=== PATIENT | male | born 1995 | race Caucasian/White ===

== ENCOUNTER 2021-04-02 12:49 | Emergency (ER) | payer MEDICARE, MEDICAID, SELFPAY ==
[2021-04-02 13:17] VITALS: BP 104/75; PULSE 70; RESP 20; TEMP 36.5; O2SAT 100
--- NOTE | 2021-04-02 13:22 | ED.SKABFB ---
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 Related Data Allergies Allergy/AdvReac Type Severity Reaction Status Date / Time No Known Allergies Allergy Unverified 02/23/18 11:00 Review of Systems Review of Systems: All systems reviewed & are unremarkable except as noted in HPI and below Constitutional: Constitutional: Reports no additional constitutional complaints, Denies chills and Denies fever(s) Eyes: Eyes: Reports no additional eye complaints ENT: Reports system reviewed and no additional complaints, except as documented Cardiovascular: Cardiovascular: Reports no additional cardiovascular complaints Respiratory: Respiratory: Reports no additional respiratory complaints Gastrointestinal: Gastrointestinal: Reports no additional gastrointestinal complaints Genitourinary: Genitourinary: Reports no additional male genitourinary complaints Musculoskeletal: Musculoskeletal: Reports no additional musculoskeletal complaints Integumentary/Breasts: Skin/Breast: Reports as per HPI Comments: Right groin area, red raised area, Neurologic: Reports system reviewed and no additional complaints, except as documented Psychiatric: Psychiatric: Reports no additional psychiatric complaints Allergic/Immunologic: Allergic/Immunologic: Reports no additional allergic/immunologic complaints [facility] Past Medical History Medical History (Updated 04/02/21 @ 20:12 by Chaya Lovett) Mental and behavioral problem Social History Social History Smoking status: Never smoker Alcohol intake: never Comments At the time of my signature, I reviewed and agree with the nursing past medical, surgical, social, and family history. There is no relevant family history pertinent to the patient complaint. Exam Const: General: no acute distress and alert Nutritional Appearance: well nourished Orientation/consciousness: patient oriented x3 Limitations: no limitations and behavioral limitations (MR lives in a skilled nursing) HENMT: Head: normal to inspection Eyes: Conjunctivae: conjunctivae normal Pupils: Equal, round and reactive pupils present Neck: Neck: normal visual inspection Chest: Chest palpation & inspection: normal inspection of the chest Resp: Effort & Inspection: normal respiratory effort Auscultation: clear to auscultation bilaterally Cardio: Rate: regular rate Rhythm: regular rhythm GI: GI Palp: Yes Soft to palpation and No Tenderness to palpation present (GI) Skin: General skin exam: normal color Other: Small scabbed over area noted to the left groin area. Caregiver states it was a pustule last night. Now red proximately 1-1/2 cm in diameter Neuro: General: patient oriented x3, moves all extremities and no meningeal signs Extrem: General: normal to inspection Psych: Appearance: grossly normal and well kempt Mental Status: mental status grossly normal Affect: normal affect Attitude: cooperative Thought content: Yes Normal thought content present Course Course Emergency Course: Discharge instructions reviewed with patient, as well as provided in writing per nursing staff. The instructions also include specific and strict return/GO TO THE ER as well as f/u information. All questions have been answered, and the patient deny any further questions with discharge and discharge plan. Vital Signs Vital signs: Vital Signs Temperature 97.7 F 04/02/21 13:17 Pulse Rate 70 04/02/21 13:17 Respiratory Rate 20 04/02/21 13:17 Blood Pressure 104/75 04/02/21 13:17
== END 2021-04-02 13:50 | disposition home or self-care (01) ==
PROVIDERS: Emergency Provider Nurse Practitioner
DX: L03.314 Cellulitis of groin (principal); F84.0 Autistic disorder
CPT/HCPCS: 99213; G0463

== ENCOUNTER 2021-07-19 14:17 | Emergency (ER) | payer MEDICARE, MEDICAID, SELFPAY ==
[2021-07-19 14:27] VITALS: BP 102/77; PULSE 80; RESP 12; TEMP 36.7; O2SAT 100
[2021-07-19 14:33] VITALS: BP 102/77; PULSE 80; RESP 12; TEMP 36.7; O2SAT 100
--- NOTE | 2021-07-19 14:47 | ED.GENADULT ---
HPI - General Adult General Chief complaint: Unspecified Stated complaint: rib pain Time Seen by Provider: 07/19/21 14:45 Source: other ([facility] staff) Mode of arrival: ambulatory Limitations: other (nonverbal) History of Present Illness HPI narrative: [facility] staff member states patient was choking at lunch today on either a sandwich or Cheetos. She heard the patient choking and administered the Heimlich maneuver/ 3 abdominal thrusts to the patient, until she felt the food dislodged. Since that time, patient has been acting normally, but he is nonverbal. The nurse at the facility wanted patient checked out, and this is why they present to [facility] today. MD complaint: Post Heimlich maneuver Related Data Home Medications Medication Instructions Recorded Confirmed divalproex PO 07/19/21 olanzapine mg 07/19/21 propranolol 07/19/21 risperidone mg 07/19/21 risperidone mg 07/19/21 Allergies Allergy/AdvReac Type Severity Reaction Status Date / Time No Known Allergies Allergy Unverified 02/23/18 11:00 Review of Systems Review of Systems: Obtained by [facility] staff member CONSTITUTIONAL: Denies fever, chills, or sweats. EYES: Denies redness, or discharge. ENT: Denies rhinorrhea, congestion. CARDIOVASCULAR: Denies edema. RESPIRATORY: Denies cough or dyspnea. GASTROINTESTINAL: Denies vomiting, or diarrhea. + Choking episode SKIN: Denies rash, itching, or wounds. [facility] Past Medical History Medical History (Updated 07/19/21 @ 15:00 by Noelle Dorsey, [facility], ) ADHD Autism alcohol syndrome (dysmorphic) Intellectual delay Mental and behavioral problem Thrombocytopenia Social History Social History Smoking status: Never smoker Alcohol intake: never Comments At time of signature, I have reviewed and agree with nursing past medical, surgical, social and family history unless otherwise noted. Please see nursing chart for further information. There is no relevant family history pertinent to the presenting complaint Exam Narrative: GENERAL: Well-appearing, well-nourished, and in no acute distress. HEAD: Normocephalic, atraumatic. EYES: EOMI. No redness or drainage. Conjunctivae normal. ENT: Mucous membranes pink and moist. NECK: Normal AROM. CHEST: No respiratory distress. Clear to auscultation. Chest is nontender to palpation throughout all ribs. No crepitus or deformity noted. No ecchymosis or edema noted to the chest, ribs, or back. Patient does not withdrawal to palpation of the ribs. HEART: Regular rate and rhythm. No murmur appreciated. Normal peripheral pulses. ABDOMEN: Soft, nontender, nondistended, normal active bowel sounds. Patient does not withdraw to palpation of the abdomen. MUSCULOSKELETAL: No bony tenderness. EXTREMITIES: Normal range of motion. No edema. SKIN: Warm, dry, no rash. Capillary refill normal. Normal skin turgor. NEURO: No focal deficits. Alert and oriented x3. Gait steady. Patient is nonverbal but is redirectable. Course Course Emergency Course: Patient has a normal exam. I do not feel it needed to attempt an x-ray tonight. Vital Signs Vital signs: Vital Signs Temperature 98.1 F 07/19/21 14:27 Pulse Rate 80 07/19/21 14:27 Respiratory Rate 12 07/19/21 14:27 Blood Pressure 102/77 07/19/21 14:27 Pulse Oximetry 100 07/19/21 14:27 Temperature 98.1 F 07/19/21 14:33 Pulse Rate 80 07/19/21 14:33 Respiratory Rate 12 07/19/21 14:33 Blood Pressure 102/77 07/19/21 14:33 Pulse Oximetry 100 07/19/21 14:33 Reviewed Medical Decision Making Differential Diagnosis Differential Diagnosis: Rib contusion, rib fracture, normal exam Vital Signs Vital Signs: Vital Signs Temperature 98.1 F 07/19/21 14:27 Pulse Rate 80 07/19/21 14:27 Respiratory Rate 12 07/19/21 14:27 Blood Pressure 102/77 07/19/21 14:27 Pulse Oximetry 100 07/19/21 14:27 Temper
== END 2021-07-19 15:04 | disposition home or self-care (01) ==
PROVIDERS: Emergency Provider Nurse Practitioner
DX: Z71.1 Person with feared health complaint in whom no diagnosis is made (principal); F84.0 Autistic disorder; F90.9 Attention-deficit hyperactivity disorder, unspecified type
CPT/HCPCS: 99211; G0463

== ENCOUNTER 2022-06-24 17:20 | Emergency (ER) | payer MEDICARE, MEDICAID, SELFPAY ==
[2022-06-24 17:31] VITALS: PULSE 92; RESP 16; TEMP 36.9; O2SAT 98
--- NOTE | 2022-06-24 17:42 | ED.EAR ---
HPI - Ear Problem General Chief complaint: Ear Stated complaint: pointing to ears Time Seen by Provider: 06/24/22 17:42 Source: patient Mode of arrival: ambulatory Limitations: no limitations History of Present Illness HPI Narrative: 27-year-old male presents with caregiver stating that patient has been acting abnormal for 2-3 days. Reports that he normally is in bed 8:30 p.m. and has been staying up late. Has been grabbing at his ears. Patient is nonverbal and not able to communicate his pain. caregiver states that nurse at senior living would like urine, throat and ears checked. All systems reviewed and negative except as noted above. Related Data Home Medications Medication Instructions Recorded Confirmed divalproex 500 mg tablet,extended 500 mg PO DIRECTED 07/19/21 06/24/22 release 24 hr olanzapine 10 mg tablet 10 mg PO DAILY 07/19/21 06/24/22 propranolol 10 mg tablet 10 mg PO DAILY 07/19/21 06/24/22 risperidone 0.5 mg tablet 0.5 mg PO DAILY 07/19/21 06/24/22 risperidone 1 mg tablet 1 mg PO DAILY 07/19/21 06/24/22 famotidine 20 mg tablet 20 mg PO DAILY 06/24/22 06/24/22 guanfacine 1 mg tablet 1 mg PO DIRECTED 06/24/22 06/24/22 medroxyprogesterone 10 mg tablet 10 mg PO DIRECTED 06/24/22 06/24/22 wheat dextrin 3 gram/3.5 gram oral PO 06/24/22 powder (Best Fiber) Allergies Allergy/AdvReac Type Severity Reaction Status Date / Time No Known Allergies Allergy Verified 06/24/22 17:23 Review of Systems Review of Systems: CONSTITUTIONAL: Denies fever, chills, or sweats. EYES: Denies visual changes, redness, or discharge. ENT: Denies rhinorrhea, congestion, sore throat, or otalgia. CARDIOVASCULAR: Denies chest pain, palpitations, or edema. RESPIRATORY: Denies cough or dyspnea. GASTROINTESTINAL: Denies abdominal pain, nausea, vomiting, or diarrhea. GENITOURINARY: Denies dysuria or hematuria. SKIN: Denies rash or itching. MUSCULOSKELETAL: Denies back pain, joint pain, or myalgia. NEUROLOGIC: Denies headache, numbness, or weakness. PSYCHIATRIC: Denies anxiety or depression. caregiver reports Not acting himself. All other systems reviewed are negative, except as documented in HPI. [facility] Past Medical History Medical History (Updated 06/24/22 @ 18:20 by Cheri Payne NP) ADHD Autism alcohol syndrome (dysmorphic) Intellectual delay Mental and behavioral problem Thrombocytopenia Social History Social History Smoking status: Never smoker Alcohol intake: never Comments At time of signature, agree with nursing past medical, surgical, social and family history. There is no relevant family history pertinent to the presenting complaint. Exam Narrative: GENERAL: This is a well-nourished, well-developed patient, in no apparent distress. HEAD: normocephalic, atraumatic. EYES: PERRL. Sclera clear/white. Vision is grossly intact. EARS: External ears normal, auditory canals clear and without drainage, TMs normal without perforation. Hearing grossly intact. NOSE: External nose normal with no obvious nasal discharge, nares without redness, no rhinorrhea. THROAT: Mucous membranes moist, posterior pharynx clear. NECK: Neck supple, non-tender without lymphadenopathy, masses or thyromegaly. CARDIOVASCULAR: Regular rate and rhythm without murmurs, gallops, or rubs. RESPIRATORY: Clear to auscultation. Breath sounds equal bilaterally. No wheezes, rales, or rhonchi. SKIN: warm, Dry, intact with no suspicious lesions or rash, good texture and turgor. NEURO: awake EXTREMITIES: No joint tenderness, effusion, or edema noted. Course Course Level of Care: Express Care Visit Vital Signs Vital signs: Vital Signs Temperature 36.9 C 06/24/22 17:31 Pulse Rate 92 06/24/22 17:31 Respiratory Rate 16 06/24/22 17:31 Pulse Oximetry 98 06/24/22 17:31 Oxygen Delivery Room Air 06/24/22 17:31 Temperature 36.9 C 06/24/22 17
== END 2022-06-24 18:27 | disposition home or self-care (01) ==
PROVIDERS: Emergency Provider Nurse Practitioner Family
DX: R46.2 Strange and inexplicable behavior (principal); Z20.822 Contact with and (suspected) exposure to COVID-19
CPT/HCPCS: 81003; 87081; 87426; 87804; 87880; 99213; C9803; G0463

== ENCOUNTER 2023-01-01 08:06 | Emergency (ER) | payer MEDICARE, MEDICAID, SELFPAY ==
--- NOTE | 2023-01-01 08:08 | ED.URI ---
HPI - URI/Sore Throat General Chief Complaint: Eye Problems Stated Complaint: Eyes Irritation, Cough Time Seen by Provider: 01/01/23 08:07 Source: patient Mode of arrival: ambulatory Limitations: no limitations History of Present Illness HPI Narrative: Jostin is a 27-year-old male patient presenting to the clinic today with complaints of bilateral eye irritation, sore throat, and cough since last night. Patient is a developmentally disabled gentleman who lives in a half-way. Caregiver reports that staff noticed he had some drainage coming from bilateral eyes last night with mild swelling and irritation. Patient has a history of playing in his stool/eating his stool. Patient reporting sore throat. Denies any known fever or chills however temperature is 99? F in the clinic today. MD elicited complaint: sore throat, nasal congestion and other (Eye drainage) Related Data Home Medications Medication Instructions Recorded Confirmed divalproex 500 mg tablet,extended 500 mg PO DIRECTED 07/19/21 01/01/23 release 24 hr olanzapine 10 mg tablet 10 mg PO DAILY 07/19/21 01/01/23 propranolol 10 mg tablet 10 mg PO DAILY 07/19/21 01/01/23 risperidone 0.5 mg tablet 0.5 mg PO DAILY 07/19/21 01/01/23 risperidone 1 mg tablet 1 mg PO DAILY 07/19/21 01/01/23 famotidine 20 mg tablet 20 mg PO DAILY 06/24/22 01/01/23 guanfacine 1 mg tablet 1 mg PO DIRECTED 06/24/22 01/01/23 medroxyprogesterone 10 mg tablet 10 mg PO DIRECTED 06/24/22 01/01/23 wheat dextrin 3 gram/3.5 gram oral 3 g PO DAILY 06/24/22 01/01/23 powder (Best Fiber) Allergies Allergy/AdvReac Type Severity Reaction Status Date / Time No Known Allergies Allergy Verified 06/24/22 17:23 Review of Systems Review of Systems: Pertinent positives per HPI. Patient denies any fever, chills, rash, headache, visual changes, dizziness, shortness of breath, chest pain, palpitations, nausea, vomiting, diarrhea, constipation, abdominal pain, or any urinary issues. PMFSH Past Medical History Medical History ADHD Autism alcohol syndrome (dysmorphic) Intellectual delay Mental and behavioral problem Thrombocytopenia Social History Social History Smoking status: Never smoker Alcohol intake: never Comments At the time of my signature, I reviewed and agree with the nursing past medical, surgical, social, and family history. There is no relevant family history pertinent to the patient complaint. Exam Narrative: General: Well-developed, obese, in no apparent distress Head: Normocephalic, atraumatic Eyes: Pupils equally round and reactive to light bilaterally, EOM intact, sclera and conjunctive injected with yellow mucopurulent discharge right greater than left, lids mildly swelling Ears: TMs intact and clear, ear canals clear, no drainage, grossly hearing normal. Nose: Nares patent, clear discharge, no inflammation, no sinus tenderness. Mouth: Oral pharynx red without lesions or masses, good dentition, MMM. Neck: Supple, trachea midline, mild enlargement of anterior cervical nodes, no thyroid masses or goiter palpable. Cardio: Regular rate and rhythm, s1 and s2 normal, no murmur appreciated. Resp: Clear to auscultation bilaterally, no rhonchi, rales, wheezing or rubs Course Course Emergency Course: Portions of this record may have been created with voice recognition software. Level of Care: Express Care Visit Vital Signs Vital signs: Vital Signs Temperature 37.2 C 01/01/23 08:20 Pulse Rate 95 01/01/23 08:20 Respiratory Rate 14 01/01/23 08:20 Blood Pressure 105/77 01/01/23 08:20 Pulse Oximetry 99 01/01/23 08:20 Oxygen Delivery Room Air 01/01/23 08:20 Temperature 37.2 C 01/01/23 08:20 Pulse Rate 95 01/01/23 08:20 Respiratory Rate 14 01/01/23 08:20 Blood Pressure 105/77 01/01/23 08:20 Pu
[2023-01-01 08:20] VITALS: BP 105/77; PULSE 95; RESP 14; TEMP 37.2; O2SAT 99
== END 2023-01-01 08:43 | disposition home or self-care (01) ==
PROVIDERS: Emergency Provider Nurse Practitioner Family
DX: J06.9 Acute upper respiratory infection, unspecified (principal); H10.33 Unspecified acute conjunctivitis, bilateral; F84.0 Autistic disorder; F79 Unspecified intellectual disabilities; F90.9 Attention-deficit hyperactivity disorder, unspecified type
CPT/HCPCS: 87081; 87880; 99213; G0463

== ENCOUNTER 2025-01-30 17:08 | Emergency (ER) | payer MEDICARE, MEDICAID, SELFPAY ==
--- NOTE | ~2025-01-30 | XR_ITS ---
Clinical Indication: Cough, fever PA and lateral views of the chest: Comparison: None Findings: The lungs are clear, without evidence of focal consolidation or pleural effusion. Cardiome diastinal silhouette is within normal limits. Bones and soft tissues are unremarkable. Impression: Normal chest. Reviewed, dictated and finalized at location . Impression: Normal chest.
[2025-01-30 17:09] VITALS: BP 140/90; PULSE 87; RESP 16; TEMP 36.7; O2SAT 99
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
--- OUTSIDE RECORDS SUMMARY | 2025-01-30 17:10 | XMS_ITS | Patient Health Record ---
Author Organization [facility] Address [address] [place] [address] Care Team Providers Care Forms Builder Name Role Phone Juvencio Li Primary Care Provider [phone] Unavailable U navailable Reason For Referral No Information Medications Medication SIG (Take, Route, Frequency, Duration) Notes Start Date End Date Status Depakote ER 500 MG 1 Orally bid; Durati on: 30 days Active diphenhydrAMINE HCl 25 MG 1 capsule as n eeded Orally every 6 hrs Active RisperDAL 3 MG 1 tablet Orally twic e a day; Duration: 30 days Active Vitamin D-3 1000 UNIT 1 capsule Orally O nce a day Active Bisacodyl 5 MG 1 tablet as needed O rally Once a day Active guanFACINE HCl 1 MG 1 tablet at bedtime Orally Once a day; Duration: 30 days Active Acetaminophen 325 MG 2 tablets as needed Orally every 6 hrs Active PROzac 10 MG 1 capsule in the mor ilya Orally Once a day; Duration: 30 day(s) Active Calcium 600 MG 2 tablet Orally Once a day Active Propranolol HCl 10 MG 1 tablet Orally Tw ice a day; Duration: 30 days Active Fish Oil 1000 MG 1 capsule Orally Onc e a day Active Problems Problem Type SNOMED Code ICD Code Onset Dates Problem Status W/U Status Risk Notes Problem Obesity (255230883) Obesity (E66.9) Active confirmed Problem Autism spectrum disorder (45628036) Autism spectrum disorder (F84.0) Active confirmed Plan Of Treatment No Information Insurance Providers Payer Name Payer Address Payer Phone Subscriber Number Group Number Insured Name Patient Relationship to Insured Coverage Start Date Coverage End Date MEDICARE PART A [address] [place] [phone] [id number] Jostin Parra Self - patient is the insured 4 MEDICAID [address] [place] [address] [id number] Jostin Parra Self - patient is the insured 7 Medical (General) History Medical History History ICD Code autism obesity Hospitalization History Reason Date(Month/Year) Not eating, shaking 01/26/2017
--- OUTSIDE RECORDS SUMMARY | 2025-01-30 17:10 | XMS_ITS | Patient Health Record ---
Author Organization [facility] [employer] Address [address] [facility] [address] [place] [address] Care Team Providers Care Earth Boring Machine Operator Name Role Phone Ken Spears Unavailable [phone] Reason For Referral No Information Medications Medication SIG (Take, Route, Frequency, Duration) Notes Start Date End Date Status Invega 9 mg Oral Active VITAMIN E 268 MG (400 UNIT) CAPSULE *Reorder from [employer] for eRx and Interaction Alerts* Active RisperDAL 1 MG Oral Activ e Melatonin 3 MG Oral Activ e Loperamide HCl 2 MG Oral Active ARIPiprazole 20 MG Oral A ctive Abilify 5 MG Oral Active Divalproex Sodium 500 MG Oral Active Vyvanse 30 MG Oral Active Invega 3 mg Oral Active Abilify 30 MG Oral Active Polyethylene Glycol 3350 17 gram ORAL *Pick strength-form from [employer] for eRX* Active Abilify 15 MG Oral Active RisperDAL 0.5 MG Oral Act roseann Bisacodyl EC 5 MG Oral Ac tive guanFACINE HCl 1 MG Oral Active FLUoxetine HCl 10 MG Oral Active Abilify 10 MG Oral Active LORazepam 0.5 MG Oral Act roseann Citalopram Hydrobromide 20 MG Oral Active Align 4 mg Oral Active Propranolol HCl 10 MG Oral Active Dexmethylphenidate HCl ER 10 MG Oral Active QUEtiapine Fumarate 25 MG Oral Active QUEtiapine Fumarate 50 MG Oral Active Invega 6 mg Oral Active Abilify 20 MG Oral Active Divalproex Sodium ER 500 MG Oral Active risperiDONE 3 MG Oral Act roseann ARIPiprazole 15 MG Oral A ctive diphenhydrAMINE HCl 25 MG Oral Active Differin 0.1 % External Activ e QUEtiapine Fumarate 100 MG Oral Active RisperDAL 2 MG Oral Activ e Citalopram Hydrobromide 10 MG Oral Active Adderall XR 20 MG Oral Ac tive Adderall XR 10 MG Oral Ac tive Evekeo 5 MG Oral Active Vyvanse 50 MG Oral Active Plan Of Treatment No Information
--- OUTSIDE RECORDS SUMMARY | 2025-01-30 17:11 | XMS_ITS | Encounter Summary ---
Author Organization [facility] Address [address] [place] [address] Phone Care Team Providers Care Walking Dragline Oiler Name Role Phone Douglas Michel Primary Care Provider Zana Reina MD Unavailable [place]ia Pelayo APRN, CAPACITY MANAGER Unavailable Reason for Visit * Reason Comments Medication Refill Encounter Details Date Type Department Care Team (Late st Contact Info) Description 02/13/2023 Refill [facility] - [place] [address] [place] [phone] Kassie Olvera No, PAC [address] [place] [address] Medication Refill Social History Tobacco Use Types Packs/Day Years Used Date Smoking Tobacco: Never Smokeless Tobacco: Never Alcohol Use Standard Drinks/Week Comments No 0 (1 standard drink = 0.6 oz pur e alcohol) PHQ-2 Answer Date Recorded Total Score - Questions 1-9 0 03/24 Sexually Active Control Partners Comments Never Sex and Gender Information Value Date Recorded Sex Assigned at Not on file Legal Sex Male 12:56 PM CDT Gender Identity Not on file Sexual Orientation Not on file documented as of this encounter Miscellaneous Notes * Telephone Encounter - Cherise Higgins RN - 02/14/2023 12:01 PM CDT Medication passed protocol. Routing to provider for approval due to previous provider is no longer with office. mirilax order pended, please review. documented in this encounter Plan of Treatment Upcoming Encounters Date Type Department Care Team (Late st Contact Info) Description 02/03/2025 2:45 PM CDT Office Visit [facility] Primary [facility] [address] [place] [address] Douglas Michel PAC [address] [place] [address] 05/09/2025 10:30 AM CDT Office Visit [facility] [place] [address] [place] [phone] Douglas Michel PAC [address] [facility] [address] 01/13/2026 2:00 PM CDT Office Visit [facility] - Gastroenterology - [place] [address] [place] [address] Albania Pelayo APRN, CAPACITY MANAGER [address] [place] [address] documented as of this encounter Visit Diagnoses Diagnosis Alternating constipation and diarrhea Other symptoms involving digestive system documented in this encounter Additional Health Concerns Assessment Noted Time PHQ-9 Depression Total Score: 0 11/30/19 19 11:00 AM CDT documented as of this encounter Care Teams Walking Dragline Oiler Relationship Specialty Start Date End Date Douglas Michel PAC [address] [place] [address] PCP - General Physician Head Lineman 04/06/22 Zana Reina MD [address] [facility] [address] [address] Consulting Physician Colon and Rectal Surgery 09/01/22 Albania Pelayo APRN, CAPACITY MANAGER [address] [place] [address] Nurse Practitioner Advanced Practice Nurse 07/11/22 documented as of this encounter
--- OUTSIDE RECORDS SUMMARY | 2025-01-30 17:11 | XMS_ITS | Clinical Summary ---
Author Organization [facility] Address [address] [place] [address] Phone Care Team Providers Care Poultry Eviscerator Name Role Phone Unavailable Primary Care Provider Unavailabl e Allergies No known active allergies Medications calcium carbonate (CALCIUM 600 ORAL) Take 600 mg by mouth 2 times daily. Active clindamycin phos/benzoyl perox (CLINDAMYCIN-HARRY OYL PEROXIDE TOPICAL) Apply to affected area 2 times daily. Active divalproex (DEPAKOTE) 500 mg delayed release tablet Take 2,000 mg by mouth daily at bedtime. Active docusate sodium (COLACE) 100 mg capsule Take 100 mg by mouth daily at bedtime. Active guanFACINE (TENEX) 1 mg tablet Take 1 mg by mouth 2 times daily. Active melatonin 3 mg Tablet Take by mouth daily at bedtime. Active paliperidone (INVEGA) 6 mg Extended Release 24 hour tablet Take 12 mg by mouth daily at bedtime. Active polyethylene glycol (MIRALAX) 17 gram Powder in Packet Take 17 Grams by mouth daily. Active propranoloL (INDERAL) 10 mg tablet Take 10 mg by mouth 2 times daily. Active multivit,tx with iron,minerals (THEREMS-M ORAL) Take by mouth daily. Active cholecalciferol, vitamin D3, 1,000 unit Take 1,000 Units by mouth daily. Active vitamin E 400 unit capsule Take 400 Units by mouth 3 times daily. Active OTHER 2 times daily. Moisturizing Hand Cream Apple to both feet twice daily for dry skin Active mineral oil-hydrophilic petrolatum (Aquaphor) Ointment Apply to affected area 2 times daily as needed for Discomfort. Apply to neck and inner thighs after hydrocortisone is applied. Active bisacodyL (DULCOLAX) 5 mg Delayed Release tablet Take 10 mg by mouth 1 time daily as needed for Constipation. Active bismuth subsalicylate (BISMATROL ORAL) Take 30 mL by mouth. Take 30 ml by mouth as needed for each loose stool or upset stomach. 8 doses/24 hours. If symptoms persist >48 hours, notify MD Active diphenhydrAMINE (BENADRYL) 25 mg tablet Take 25 mg by mouth every 6 hours as needed for Allergies. Active hydrocortisone (CORTAID) 1 % Cream Apply to affected area 2 times daily as needed for Itching. Active loperamide (IMODIUM) 2 mg capsule Take 2 mg by mouth every 3 hours as needed for Diarrhea/Loose Stools. Max 5 doses /24 hour Active acetaminophen (TYLENOL) 325 mg tablet Take 650 mg by mouth every 4 hours as needed. Active mag hydrox/aluminum hyd/simeth (MINTOX ORAL) Take 30 mL by mouth every 4 hours as needed. Active guaiFENesin (Robafen) 100 mg/5 mL solution Take 10 mL by mouth every 4 hours as needed for Cough. Active Social History Tobacco Use Types Packs/Day Years Used Date Smoking Tobacco: Unknown Sex and Gender Information Value Date Recorded Sex Assigned at Not on file Legal Sex Male 3:26 PM CDT Gender Identity Not on file Sexual Orientation Not on file Last Filed Vital Signs Vital Sign Reading Time Taken Comments Blood Pressure 137/98 02/28/2020 1:24 PM CDT Pulse 80 02/28/2020 2:45 PM CDT Temperature 36.7 C (98 F) 02/28/2020 2:45 PM CDT Respiratory Rate 20 02/28/2020 2:45 PM CDT Oxygen Saturation 98% 02/28/2020 2:45 PM CDT Inhaled Oxygen Concentration - - Weight 104.3 kg (230 lb) 02/28/2020 5:15 AM CDT Height 182.9 cm (6') 02/28/2020 5:15 AM CDT Body Mass Index 31.19 02/28/2020 5:15 AM CDT Plan of Treatment Health Maintenance Due Date Last Done Comments HEPATITIS B VACCINES (1 of 3 - 19+ 3-dose series) 2013 INFLUENZA VACCINE (#1) 2025 8, 05/11/2017, 06/13/2016 DTAP/TDAP/TD VACCINES (4 - Td or Tdap) 11/29/2028 11/29/2018, 02/08/2017, 10/09/1998 HPV VACCINES Aged Out No longer eligi ble based on patient's age to complete this topic Medical Devices Implanted Type Area Die Cutter Diamond Device Identifier Shelf Expiration Date Model / Serial / Lot Hemostatic Surgifoam [id number] - [id number] Implanted:Qty: 2 on 02/28/2020 by Tiffany Mora DMD at [facility] Hemostatic N/A: Mouth [employer] 10/23/20231973 / / [id number] Insurance MEDICARE PART A AND B MEDICAID [place] Advance Directives For more information, please contact: [phone] * Full Code (Latest Code Status on File) Date Activated Date Inactivated Comments 02/28/2020 1:11 PM 02/28/2020 5:36 PM * Full Code Date Activated Date Inactivated Comments 02/28/2020 5:30 AM 02/28/2020 1:11 PM
--- NOTE | 2025-01-30 17:16 | ED.URI ---
HPI - URI/Sore Throat General Chief Complaint: Upper Respiratory Infection <Nancy [place] PA-C - Last Filed: 01/30/25 17:18> Stated Complaint: fever, cough, sore throat, decreased intake <Nancy [place] PA-C - Last Filed: 01/30/25 17:18> Focused HPI: 29-year-old male with history of autism, ADHD, intellectual delay presents to the ED from [facility] with group dynamics instructor at bedside for cough, congestion, sore throat, fevers. Patient reportedly developed symptoms several days ago and went to urgent care and was prescribed a Z-Jermaine on 01/27/2025 for URI. Has been taking his medication without improvement. Today spiked fever so came to the ED for further evaluation. Patient is nonverbal and unable to provide any history. 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 GENERAL: Well-appearing, well-nourished, and in no acute distress. HEAD: Normocephalic, atraumatic. ENT: Bilateral TMs are salas nonbulging with normal canals. Posterior pharynx erythema or edema, no tonsillar hypertrophy or uvular deviation CHEST: Clear to auscultation. ?No respiratory distress. HEART: Regular rate and rhythm.? NEURO: ?Alert and oriented x3. Patient screened in triage and initial orders placed.? ?Additional care and disposition to be based upon?diagnostic testing and treatment. <Nancy [place] PA-C - Last Filed: 01/30/25 17:18> Focused HPI: 29-year-old male with history of autism, ADHD, intellectual delay presents to the ED from [facility] with group dynamics instructor at bedside for cough, congestion, sore throat, fevers. Patient reportedly developed symptoms several days ago and went to urgent care and was prescribed a Z-Jermaine on 01/27/2025 for URI. Has been taking his medication without improvement. Today spiked fever so came to the ED for further evaluation. Patient is nonverbal and unable to provide any history. 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 GENERAL: Well-appearing, well-nourished, and in no acute distress. HEAD: Normocephalic, atraumatic. ENT: Bilateral TMs are salas non bulging with normal canals. Posterior pharynx without erythema or edema, no tonsillar hypertrophy or uvular deviation CHEST: Clear to auscultation. ?No respiratory distress. HEART: Regular rate and rhythm.? NEURO: ?Alert and oriented x3. Patient screened in triage and initial orders placed.? ?Additional care and disposition to be based upon?diagnostic testing and treatment. <Savannah Mejía PA-C - Last Filed: 01/31/25 01:32> Related Data Home Medications: Home Medications ?Medication ?Instructions ?Recorded ?Confirmed ?Last Taken ?Type divalproex 500 mg tablet,extended 500 mg PO DIRECTED 07/19/21 01/01/23 Unknown History release 24 hr olanzapine 10 mg tablet 10 mg PO DAILY 07/19/21 01/01/23 Unknown History propranolol 10 mg tablet 10 mg PO DAILY 07/19/21 01/01/23 Unknown History risperidone 0.5 mg tablet 0.5 mg PO DAILY 07/19/21 01/01/23 Unknown History risperidone 1 mg tablet 1 mg PO DAILY 07/19/21 01/01/23 Unknown History famotidine 20 mg tablet 20 mg PO DAILY 06/24/22 01/01/23 Unknown History guanfacine 1 mg tablet 1 mg PO DIRECTED 06/24/22 01/01/23 Unknown History medroxyprogesterone 10 mg tablet 10 mg PO DIRECTED 06/24/22 01/01/23 Unknown History wheat dextrin 3 gram/3.5 gram oral 3 g PO DAILY 06/24/22 01/01/23 Unknown History powder (Best Fiber) <Nancy [place] PA-C - Last Filed: 01/30/25 17:18> Allergies/Adverse Reactions: Allergies Allergy/AdvReac Type Severity Reaction Status Date / Time No Known Allergies Allergy Verified 01/30/25 17:12 <Nancy [place] PA-C - Last Filed: 01/30/25 17:18> Review of Systems Review of Systems: All systems reviewed & are unremarkable except as noted in HPI and below <Savannah Mejía PA-C - Last Filed: 01/31/25 01:32> [facility] Past Medical History Medical History: Medical History ADHD Autism alcohol syndrome (dysmorphic) Intellectual delay Mental and behavioral problem Thrombocytopenia <BRINA Shaw Last Filed: 01/30/25 17:18> Social History Social History: Social History Smoking status: Never smoker Alcohol intake: never <Nancy [place] PA-C - Last Filed: 01/30/25 17:18> Exam Narrative: GENERAL: Well-appearing, well-nourished, and in no acute distress. HEAD: Normocephalic, atraumatic. EYES: EOMI. ENT: Nares clear, no rhinorrhea or epistaxis. Mucous membranes moist. Oropharynx without tonsillar hypertrophy exudate or other lesions. Bilateral TMs pearly salas non-bulging NECK: Supple. No adenopathy or masses. CHEST: Clear to auscultation. No respiratory distress. No wheezes rales or rhonchi HEART: Regular rate and rhythm. No murmur heard. Normal peripheral pulses. EXTREMITIES: Normal range of motion. No edema. SKIN: Warm, dry, no rash. NEURO: No focal deficits. Alert and oriented x3. PSYCH: Normal mood and affect <Savannah Mejía PA-C - Last Filed: 01/31/25 01:32> Course Vital Signs Vital signs: Vital Signs Temperature 98.1 F 01/30/25 17:09 Pulse Rate 87 01/30/25 17:09 Respiratory Rate 16 01/30/25 17:09 Blood Pressure 140/90 01/30/25 17:09 Pulse Oximetry 99 01/30/25 17:09 Temperature 98.1 F 01/30/25 17:09 Pulse Rate 87 01/30/25 17:09 Respiratory Rate 16 01/30/25 17:09 Blood Pressure 140/90 01/30/25 17:09 Pulse Oximetry 99 01/30/25 17:09 <Nancy [place] PA-C - Last Filed: 01/30/25 17:18> Vital Signs Temperature 98.1 F 01/30/25 17:09 Pulse Rate 87 01/30/25 17:09 Respiratory Rate 16 01/30/25 17:09 Blood Pressure 140/90 01/30/25 17:09 Pulse Oximetry 99 01/30/25 17:09 Temperature 98.1 F 01/30/25 17:09 Pulse Rate 87 01/30/25 17:09 Respiratory Rate 16 01/30/25 17:09 Blood Pressure 140/90 01/30/25 17:09 Pulse Oximetry 99 01/30/25 17:09 <BRINA Milner Last Filed: 01/31/25 01:32> MDM - URI/Sore Throat MDM Narrative Medical decision making narrative: Patient presents to the emergency department for cold symptoms present over the last couple of days. He is afebrile and nontoxic appearing. His vitals are stable. Was recently seen in urgent care and started on a Z-Jermaine. Influenza, RSV, COVID, mono, strep screens are negative. Cbc without leukocytosis. Metabolic panel without concerning findings. Chest x-ray without evidence of pneumonia. Patient and caregiver updated on workup and agree with plan of care. They were given warnings to return to the ER <BRINA Milner Last Filed: 01/31/25 01:32> Differential Diagnosis Differential diagnosis: Likely upper respiratory infection, otitis media, sinusitis, viral infection, bronchitis, influenza, pharyngitis and other (strep) <BRINA Milner Last Filed: 01/31/25 01:32> Lab Data Attestation: I reviewed the patient's lab results. <BRINA Milner Last Filed: 01/31/25 01:32> Labs: Lab Results 01/30/25 Range/Units 20:56 Monoscreen Negative (Negative) <BRINA Shaw Last Filed: 01/30/25 17:18> Lab Results 01/30/25 Range/Units 20:56 Monoscreen Negative (Negative) <BRINA Milner Last Filed: 01/31/25 01:32> Imaging Data Radiologist's impression: Chest x-ray: Hypoinflation <BRINA Milner Last Filed: 01/31/25 01:32> Critical Care Time Critical Care Time Critical Care Time: No <BRINA Milner Last Filed: 01/31/25 01:32> Discharge Plan Discharge Clinical Impression: Upper respiratory infection Qualifiers: URI type: unspecified viral URI Qualified Code(s): J06.9 - Acute upper respiratory infection, unspecified <BRINA Shaw Last Filed: 01/30/25 17:18> Patient Disposition: Home <BRINA Shaw Last Filed: 01/30/25 17:18> Condition: Stable <BRINA Shaw Last Filed: 01/30/25 17:18> Instructions: Cold Symptoms (ED) <BRINA Shaw Last Filed: 01/30/25 17:18> Additional Instructions: Return to the emergency department for worsening symptoms, or any other concerns Remain well-hydrated, get plenty of rest. Take Tylenol or Motrin [id number] for pain as needed. Flonase for nasal congestion. Zyrtec for runny nose. Lozenges or Chloraseptic spray for sore throat. Finish Azithromycin as prescribed Follow up with primary care doctor <BRINA Shaw Last Filed: 01/30/25 17:18> Patient Language: Turkish <BRINA Shaw Filed: 01/30/25 17:18> Prescriptions: No Action olanzapine 10 mg tablet 10 mg PO DAILY propranolol 10 mg tablet 10 mg PO DAILY divalproex 500 mg tablet extended release 24 hr 500 mg PO DIRECTED risperidone 1 mg tablet 1 mg PO DAILY risperidone 0.5 mg tablet 0.5 mg PO DAILY medroxyprogesterone 10 mg tablet 10 mg PO DIRECTED famotidine 20 mg tablet 20 mg PO DAILY guanfacine 1 mg tablet 1 mg PO DIRECTED Best Fiber 3 gram/3.5 gram powder 3 g PO DAILY tobramycin 0.3 % drops 1 drp EACH EYE Q4H 7 Days Qty: 5 0RF <BRINA Shaw Last Filed: 01/30/25 17:18> Follow-up/Referrals: PHYSICIAN,APPLICATIONS ENGINEERING MANAGER [Primary Care Provider] - Cipriano Ochoa MD [Physician] - <BRINA Shaw Last Filed: 01/30/25 17:18>
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
--- OUTSIDE RECORDS SUMMARY | 2025-01-30 18:26 | XMS_ITS | Encounter Summary ---
Author Organization [facility] Address [address] [place] [address] Phone Care Team Providers Care Batch Or Continuous Still Operator Name Role Phone Douglas Michel Primary Care Provider Zana Reina MD Unavailable Albania Pelayo APRN, RARE/ENDANGERED SPECIES SPECIALIST Unavailable Reason for Visit * Reason Comments Medication Refill Encounter Details Date Type Department Care Team (Late st Contact Info) Description 02/13/2023 Refill [facility] - Gastroenterology - [place] [address] [place] [phone] Kassie Olvera No, PAC [address] [place] [address] Medication Refill Social History Tobacco Use Types [...] Description 02/03/2025 2:45 PM CDT Office Visit [facility] [place] [address] [place] [address] Douglas Michel PAC [address] [place] [address] 05/09/2025 10:30 AM CDT Office Visit [facility] [place] [address] [place] [phone] Douglas Michel PAC [address] [facility] [place] [address] 01/13/2026 2:00 PM CDT Office Visit [facility] - Gastroenterology - [place] [address] [place] [address] Albania Pelayo APRN, RARE/ENDANGERED SPECIES SPECIALIST [address] [place] [address] documented as of this encounter Visit Diagnoses Diagnosis Alternating constipation and diarrhea Other symptoms involving digestive system documented in this encounter Additional Health Concerns Assessment Noted Time PHQ-9 Depression Total Score: 0 11/30/19 19 11:00 AM CDT documented as of this encounter Care Teams Batch Or Continuous Still Operator Relationship Specialty Start Date End Date Douglas Michel PAC [address] [place] [address] PCP - General Physician Lead Mobile Developer 04/06/22 Zana Reina MD [facility] [address] [address] Consulting Physician Colon and Rectal Surgery 09/01/22 Albania Pelayo APRN, RARE/ENDANGERED SPECIES SPECIALIST [address] [place] [address] Nurse Practitioner Advanced Practice Nurse 07/11/22 documented as of this encounter
--- OUTSIDE RECORDS SUMMARY | 2025-01-30 18:26 | XMS_ITS | Clinical Summary ---
Author Organization [facility] Address [address] [place] [address] Phone Care Team Providers Care Picture Copyist Name Role Phone Unavailable Primary Care Provider [...] this topic Medical Devices Implanted Type Area Neurological Surgery Teacher Device Identifier Shelf Expiration Date Model / Serial / Lot Hemostatic Surgifoam [id number] - [id number] Implanted:Qty: 2 on 02/28/2020 by Tiffany Mora DMD at [facility] Hemostatic N/A: Mouth [employer] 10/23/[id number] / / [id number] Insurance MEDICARE PART A AND B MEDICAID [place] Advance Directives For more information, please contact: [phone] * Full Code (Latest Code Status on File) Date Activated Date Inactivated Comments 02/28/2020 1:11 PM 02/28/2020 5:36 PM * Full Code Date Activated Date Inactivated Comments 02/28/2020 5:30 AM 02/28/2020 1:11 PM
--- NOTE | 2025-01-30 19:03 | PC.NURSE ---
Pts caregiver up to intake desk 2 times asking for wait time. comic book writer was informed both times, we cannot give out wait times. Pt and caregiver seen ambulating ER with steady gait. Pt was called for xray at 1901 and no answer.
[2025-01-30 23:09] LABS: Negative Monotest Control Negative (Negative); Positive Monotest Control Positive (Positive)
== END 2025-01-31 02:10 | disposition home or self-care (01) ==
PROVIDERS: Physician Assistant
DX: J06.9 Acute upper respiratory infection, unspecified (principal); Z20.822 Contact with and (suspected) exposure to COVID-19; F84.0 Autistic disorder; F90.9 Attention-deficit hyperactivity disorder, unspecified type; F81.9 Developmental disorder of scholastic skills, unspecified; Z79.899 Other long term (current) drug therapy
CPT/HCPCS: 36415; 71046; 80053; 85025; 86308; 87637; 87651; 99283